=== PATIENT | female | born 1945 | race Caucasian/White ===

== ENCOUNTER 2021-10-24 04:55 | Observation (INO) ==
--- NOTE | 2021-09-08 10:39 | PAT Medication Instructions ---
Medication Instructions Date of Service September 08, 2021 Home Medications amlodipine 5 mg tablet 5 mg PO QPM cetirizine 10 mg capsule (All Day Allergy (cetirizine)) 10 mg PO QPM cholecalciferol (vitamin D3) 50 mcg (2,000 unit) capsule 25 mcg PO QPM ezetimibe 10 mg tablet 10 mg PO QPM levothyroxine 50 mcg capsule 50 mcg PO QAM losartan 100 mg tablet 100 mg PO QPM omega-3 fatty acids 1,000 mg capsule (Fish Oil Concentrate) 1,000 mg PO BID metoprolol tartrate 25 mg tablet 25 mg PO BID vitamin C 500 mg-multivitamin with minerals chewable tablet (Emergen-C) 1 tab PO QPM STOP taking 2 weeks before surgery omega-3 fatty acids 1,000 mg capsule (Fish Oil Concentrate) 1,000 mg PO BID Take morning of surgery With a small sip of water, OTHERWISE NOTHING TO EAT OR DRINK AFTER MIDNIGHT: levothyroxine 50 mcg capsule 50 mcg PO QAM metoprolol tartrate 25 mg tablet 25 mg PO BID Take evening before surgery amlodipine 5 mg tablet 5 mg PO QPM cetirizine 10 mg capsule (All Day Allergy (cetirizine)) 10 mg PO QPM cholecalciferol (vitamin D3) 50 mcg (2,000 unit) capsule 25 mcg PO QPM ezetimibe 10 mg tablet 10 mg PO QPM losartan 100 mg tablet 100 mg PO QPM metoprolol tartrate 25 mg tablet 25 mg PO BID vitamin C 500 mg-multivitamin with minerals chewable tablet (Emergen-C) 1 tab PO QPM Other Notes If you have any questions please call us at [phone] or [phone] or [phone] or [phone]
--- NOTE | 2021-09-11 10:32 | Anesthesiology Consultation ---
Date of Service September 11, 2021 Assessment & Plan (1) Encounter for pre-operative examination: Chart Review Chart Review: Acceptable Risk for Surgery (pending preop Covid testing results ) and Patient seen in Pre Admission Testing Per PAT appt on 09/11/21, patient denies any recent travel or large group activities. No known Covid positive exposures or Covid related symptoms. No known Covid infection in the past 90 days. Pt is vaccinated for surgery. Preop Covid testing scheduled 10/20/21= will await results. Educated on importance of self quarantining, social distancing and wearing mask in public for the patient one week prior to surgery and after Covid testing done Teaching & Discussion Pre-Anesthesia Teaching/Discussion Notes: Instructed NPO after midnight before surgery,except medications with 15 cc of water. Medication instructions provided according to the [facility] guidelines. History Surgery Operation Date: 10/24/21 07:00 Proposed Procedures p Right Total Hip Arthroplasty - Mello Street MD Height/Weight Height: 5 ft 5 in Weight: 90.6 kg Allergies Allergy/AdvReac Type Severity Reaction Status Date / Time adhesive tape Allergy Unknown BLISTERS Verified 09/08/21 09:00 EKG ELECTRODES Allergy Unknown Rash Uncoded 09/08/21 09:00 Medications Home Medications Medication Instructions Recorded Confirmed Last Taken amlodipine 5 mg tablet 5 mg PO QPM 06/12/21 09/08/21 Unknown cetirizine 10 mg capsule (All Day 10 mg PO QPM 06/12/21 09/08/21 Unknown Allergy (cetirizine)) cholecalciferol (vitamin D3) 50 25 mcg PO QPM 06/12/21 09/08/21 Unknown mcg (2,000 unit) capsule ezetimibe 10 mg tablet 10 mg PO QPM 06/12/21 09/08/21 Unknown levothyroxine 50 mcg capsule 50 mcg PO QAM 06/12/21 09/08/21 Unknown losartan 100 mg tablet 100 mg PO QPM 06/12/21 09/08/21 Unknown omega-3 fatty acids 1,000 mg 1,000 mg PO BID 06/12/21 09/08/21 Unknown capsule (Fish Oil Concentrate) metoprolol tartrate 25 mg tablet 25 mg PO BID 09/08/21 09/08/21 Unknown vitamin C 500 mg-multivitamin with 1 tab PO QPM 09/08/21 09/08/21 Unknown minerals chewable tablet (Emergen-C) Tumeric 500 mg PO DAILY 09/11/21 09/11/21 Unknown hydrocortisone 1 % topical cream 1 applic TOPICAL BID PRN 09/11/21 09/11/21 Unknown Past Medical History Medical History (Updated 09/11/21 @ 16:35 by Ryann Haskins PA-C) Arthritis MULTIPLE SITES Family history of reaction to anesthesia SISTER - N/V History of anesthesia reaction AGE 18 - REACTION TO SODIUM PENTATHOL , AGITATION AND HYSTERIA HTN (hypertension) Hx of radioactive iodine thyroid ablation HX OVERACTIVE THYROID...HX RADIOACTIVE IODINE TX Hyperlipidemia Hypothyroid Follows with endocrinology routinely - stable MVP (mitral valve prolapse) - No murmur noted on 09/11/21 PAT exam - No ECHO in past 8 years per patient -Mild- per patient- does not need pretreated with antibiotic prior to procedures Neck problem ARTHRITIS, LIMITED ROM Exercise / Class Metabolic Activity III < 4 Walking/Shop/Light housework (no chest pain or SOB with flat surface ambulation - uses cane for ambulation ) Past Family History Family History Sister Family history of diabetes mellitus Grandmother Family history of diabetes mellitus Uncle Family history of diabetes mellitus Past Surgical History Surgical History History of breast biopsy RX1, LX1 History of colonoscopy History of D&C X3 History of partial thyroidectomy History of tonsillectomy and adenoidectomy [place] teeth removed HX Past Anesthesia History No Hx of Anesthesia Complications (with exception to sodium pentathol - causes agitation and hysteria - no other known issues ) and No Family Hx of Anesthesia Complications (with exception to sister - PONV ) History of PONV No Hx of Motion Sickness and History of PONV (x 1 episode at age 18 years of age- no issues since ) Social History Smoking Status: Former smoker tobacco type: cigarettes Do You Dip or Chew Tobacco: No Smoking End Date: 35 YR AGO Hx Alcohol Use: Yes Alcohol type: wine alcohol intake frequency: holidays/special occasions only substance use type: does not use Review of Systems Rare palpitations- had hx of heart monitor - no arrhythmias per patient Chronic cough- x many years- stable. Hx of snoring- no hx of sleep study Has had hx of abnormal CXR- was referred to pulmonology- had CT scans routinely x 2 years- stable/had no changes. Nora was scarring. Patient denies chest pain, shortness of breath, dyspnea on exertion, reflux, wheezing. No hx of seizures, stroke, VA. No hx of blood clots or blood transfusions Physical Exam Vital Signs VITALS BP 121/73 P 62 TEMP 97.7 SP02 96% RESP 16 Constitutional no acute distress ENMT Mouth: no TMJ clicking Thyromental Distance: > or= 3.5 Finger Breadths (3.5) Mallampati Class: III Crowns to molars and side teeth [place] to right upper right tooth Neck + limited neck extension (significant ) Respiratory normal respiratory effort; no respiratory distress Auscultation: lungs clear to auscultation bilaterally; no wheezes Cardiovascular Rate/Rhythm: regular rate and regular rhythm Heart Sounds: no murmur Vessels: no carotid bruit Musculoskeletal Spine: + pain with cervical ROM Extremities: extremities normal to inspection Psychiatric Orientation: alert Lab Results Anesthesia Preop Results Results Anesthesia Widget: WBC 5.97 K/uL (4.8-10.8) 09/11/21 Hgb 14.0 g/dL (12.0-16.0) 09/11/21 Hct 42.4 % (37-47) 09/11/21 Plt 234 K/uL (130-400) 09/11/21 Na 140 mmol/L (136-145) 09/11/21 K 4.7 mmol/L (3.5-5.1) 09/11/21 Cl 106 mmol/L (98-107) 09/11/21 CO2 30 mmol/L (21-32) 09/11/21 BUN 23 mg/dl (6-23) 09/11/21 Creat 0.69 mg/dl (0.6-1.2) 09/11/21 Glucose Level 88 mg/dl (70-99(Fasting)) 09/11/21 PT 10.7 Seconds (9.0-12.0) 09/11/21 PTT 28.7 Seconds (21.0-31.0) 09/11/21 INR 1.0 (0.9-1.1) 09/11/21 Blood Type O Positive 09/11/21 Antibody Screen NEGATIVE 09/11/21 Testing Electrocardiogram Date: 09/11/21 Findings: + SB @ (58bpm) Poor data quality Nonspecific ST abnormality Chest X-Ray Date: 09/11/21 Findings: + NAD Other Testing Event monitor 09/26/20= Minimum HR 44 bpm, max HR 102 bpm, average HR 69 bpm. Predominant underlying rhythm was sinus rhythm. Isolated SVE's were rare (<1.0%), SVE couplets were rare (<1.0%), and no SVE triplets were present. Isolated VE's were rare (<1.2%), and no VE couplets or VE triplets were present. Impression: Sinus rhythm, average heart rate 69 bpm with rare atrial ventricular ectopic and no correlation with patient's symptoms.
--- NOTE | 2021-10-20 15:27 | History and Physical Report ---
DATE OF ADMISSION: 10/24/2021 CHIEF COMPLAINT: Persistent right leg pain and discomfort. HISTORY OF PRESENT ILLNESS: The patient is a 75-year-old female who presents for followup and surgic al treatment of her right leg. She has a known history of bilateral hip and knee arthritis that we stanislav palmere been following in the past. This is going on for the past 10-12 years. The right side seems to be getting significantly worse than the left. She has been treated by Dr. Holland Juarez over at [facility] in [place], which has really not helped too much. She had an intra-articular hip joint injection, which hel ped her for a short period of time. She also had a knee injection, which helped some. She now prese nts with progressive severe pain in her right hip. The hip has gotten significantly worse. It has p rogressed. It is limiting her activities. Her walking tolerance is very limited. She would like to have her hip fixed. PAST MEDICAL HISTORY: 1. Mitral valve prolapse. 2. Anxiety. 3. Elevated cholesterol. 4. Hypertension. 5. Asthma. 6. Eczema. 7. Mild obesity with a BMI of 33. PAST SURGICAL HISTORY: Includes, 1. Thyroid removal. 2. D and C. 3. Breast biopsy. 4. Tonsillectomy. 5. Oral surgery. 6. Left knee arthroscopy. ALLERGIES: ADHESIVE TAPE. CURRENT MEDICATIONS: Include, 1. Diclofenac topical cream. 2. Cetirizine. 3. Levothyroxine. 4. Metoprolol. 5. Amlodipine. 6. Losartan. 7. Vitamin D3. 8. Fish oil. 9. Ezetimibe. 10. Tylenol. SOCIAL HISTORY: A 75-year-old female. She is . Lives by herself. Rare alcohol intake. Conte s not smoke. FAMILY HISTORY: Significant for heart disease, diabetes, skin cancer. REVIEW OF SYSTEMS: Significant for prediabetes. No chest pain or shortness of breath. No history o f DVT or PE. No bleeding problems. She does have a history of some chronic back pain. PHYSICAL EXAMINATION: GENERAL: Shows a pleasant, elderly female. Looks to be in reasonably good health. HEENT: Benign. NECK: Supple. No lymphadenopathy. LUNGS: Clear to auscultation. HEART: Has a regular rate and rhythm. ABDOMEN: Soft, nontender, nondistended. EXTREMITIES: Grossly neurovascularly intact except as follows: Examination of the right hip reveale d patient walks with an antalgic gait. Leg lengths appear pretty equal. She has got very limited hi p motion with internal rotation and neutral, which re-creates her pain. Negative straight leg raise. She is neurologically intact. Examination of the right knee reveals slight varus alignment. She has got bony hypertrophy medially. Small knee effusion. Range of motion is 5-125. X-RAYS: X-rays of the right hip are reviewed. It shows advanced right hip DJD. She has complete lo ss of her superior joint space. She has got cystic changes on both sides of the joint. She has got a similar but less severe disease on the left side. Compared to previous x-rays, this right hip arthritis has progressed significantly. X-rays of both knees reveal bilateral knee DJD, the right side worse than the left. ASSESSMENT: A 75-year-old female with advanced bilateral hip and bilateral knee degenerative joint d isease, right side a bit worse than the left. I do think her right hip has progressed significantly and giving her the biggest problems right now. PLAN: We talked about treatment. We are going to proceed with right total hip replacement. The ris ks and benefits of this procedure were explained to the patient and include but not limited to DVT, P E, , infection, neurological injury, vascular injury, bleeding problem, pain, limited range of m otion, stiffness, failure to relieve her symptoms, incomplete relief of symptoms, need for further hughes rgery in the future, etc. The patient understands and desires to proceed. Informed consent was obta ined. She does live by herself, so she will likely need to go to [facility] for rehab postoperatively. She does take her metoprolol on the morning of surgery. Job ID: [id number]
[2021-10-24] MEDS ORDERED: ACETAMINOPHEN 500 MG TAB PO SCH (06:00)
[2021-10-24] MEDS ORDERED: ceFAZolin 2000MG 2,000 MG/15 ML SYR IV SCH (06:00)
[2021-10-24] MEDS ORDERED: METOCLOPRAMIDE HCL 10 MG TABLET PO SCH (06:00)
[2021-10-24] MEDS ORDERED: TRANEXAMIC ACID 1,000 MG **IV Pre-op IV SCH (06:00)
[2021-10-24] MEDS ORDERED: FAMOTIDINE 20 MG TAB PO SCH (06:00)
[2021-10-24] MEDS ORDERED: GABAPENTIN 600 MG DOSE PO SCH (06:00)
[2021-10-24] MEDS ORDERED: LR 500ML BOLUS, THEN 15ML/HR IV SCH (06:00)
[2021-10-24] MEDS ORDERED: LR 60ML/HR IV SCH (06:00)
[2021-10-24] MEDS ORDERED: BUPIVACAINE 0.5 % 5 MG/1 ML MPF 30ML VIAL ONE ×2 (06:25→06:35)
[2021-10-24] MEDS ORDERED: EPINEPHrine INJ 1 MG/ML AMP ONE (06:35)
[2021-10-24] MEDS ORDERED: MIDAZOLAM HCL 1 MG/ML 2ML VIAL ONE (06:37)
[2021-10-24] MEDS ORDERED: fentaNYL citrate 100 MCG/2 ML VIAL ONE (06:38)
[2021-10-24] MEDS ORDERED: MoRPHine SULFATE PF 1 MG/ML 10 ML AMP/VIAL ONE (06:42)
[2021-10-24] MEDS ORDERED: PROPOFOL IV EMULSION 10 MG/ML 20 ML VIAL IV ONE (06:51)
[2021-10-24] MEDS ORDERED: LIDOCAINE 2% 2 ML VIAL/AMP(20MG/ML) INFIL ONE (06:51)
[2021-10-24] MEDS ORDERED: ONDANSETRON INJ 2 MG/ML 2 ML VIAL ONE (06:51)
--- NOTE | 2021-10-24 06:54 | History & Physical Bridge Note ---
Date of Service October 24, 2021 History & Physical Bridge Note I have examined the patient, reviewed the History & Physical and in the interval since the performance of the History & Physical I have noted the following changes of clinical significance: no changes noted
[2021-10-24] MEDS ORDERED: ePHEDrine sulfate 50 MG/ML AMP ONE (07:25)
[2021-10-24] MEDS ORDERED: PROMETHAZINE HCL 12.5 MG in SODIUM CHLORIDE 0.9% 50 ML IV PRN (07:35)
[2021-10-24] MEDS ORDERED: HYDROmorphone INJ 2 MG/ML SYR/VIAL IV PRN (07:35)
[2021-10-24] MEDS ORDERED: ONDANSETRON INJ 2 MG/ML 2 ML VIAL IV PRN ×2 (07:35→09:44)
[2021-10-24] MEDS ORDERED: fentaNYL citrate 100 MCG/2 ML VIAL IV PRN (07:35)
[2021-10-24] MEDS ORDERED: ePHEDrine sulfate 50 MG/ML AMP IV PRN (07:35)
[2021-10-24] MEDS ORDERED: ATROPINE SULFATE 0.1 MG/ML 10ML SYR IV PRN (07:35)
--- NOTE | 2021-10-24 08:37 | Operative Report ---
PG Post Operative Report Pre & Post Diagnosis Operation Date: 10/24/21 07:00 Pre-Op Diagnosis: Right Hip Advanced Degenerative Joint Disease Post-Op Diagnosis: Right Hip Advanced Degenerative Joint Disease I identified the patient and participated in the time-out.: Yes Procedure Operation Date: 10/24/21 07:00 Actual Procedures p Right Total Hip Arthroplasty--Uncemented(Right) - Mello Street MD Surgeon Mello Street MD Lead Android Developer Tim Coleman PA-C Estimated Blood Loss 200 Findings Consistent with Post-Op Diagnosis Operative findings real advanced right hip DJD. She had grade 4 [id number] disease of the femoral head and acetabulum. Fairly significant osteophytes around the acetabulum. Fairly concentric wear pattern. Good bone stock. Fluids 1300 cc Specimens Right femoral head sent for pathology. Drains None Anesthesia Type Spinal MAC Complications none Disposition Accompanied Patient To Recovery: Yes Indications Patient is a 75-year-old female has had a long history of bilateral knee and hip pain over the years. Her hip pain is consequently worse over the past year to the point where she is having trouble getting around. X-rays show progressive hip arthritis. She elected proceed with total hip arthroplasty. Description of Procedure Operative implants consist of: 1 Biomet G7 size 52 mm acetabular shell. 2. 6.5 cancellous acetabular screws 1 of 35 mm length 120 mm length. 3. Wall hole underground mine machinery mechanic. 4. Highly cross-linked polyethylene liner with a 52 mm outer diameter, 36 mm inner diameter and a rhodes placed inferior and posterior. 5. DePuy Corail size 11 short neck femoral stem with 125 degree angle. 6. +5/36 mm ceramic articular ball. The patient was taken to the operating, identified, and placed on the operating table supine position protectors were properly padded. IV antibiotics tried by anesthesia team. A spinal anesthetic had been implemented holding area. Fox catheter was placed in sterile fashion. The patient then placed in the left lateral cubitus position. An axillary roll was placed. A Stulberg hip positioner was used for positioning. The right hip and leg were then prepped and draped in usual sterile fashion. A posterolateral approach right hip was then performed to a curvilinear incision centered over the greater trochanter. Sharp dissection Through subcutaneous this down to the IT band gluteal fascia with the IT band gluteal fascia/longitudinally in line with skin incision. The underlying greater bursa was excised. The piriformis and external rotators were tagged and taken off the posterior aspect hip joint capsule. Great care was taken To procedure protect the sciatic nerve at all times. Posterior capsulotomy was then performed leaving a large flap for later repair. Hip was internally rotated and dislocated. Femoral neck osteotomy cut was made with a Final Cut about 12 mm above the lesser trochanter. Femoral head was removed and sent for pathology. The femur was retracted anteriorly. Attention drawn the acetabulum. The acetabular labrum was excised. The pulmonary fat was excised. Sequential reaming the acetabular was then performed begin with size 43 and progressing up to a 51. I did reamed a little bit with a 52 reamer and then placed a 52mm G7 acetabular shell in about 40 degrees lateral opening and 20 degrees of anteversion. Was fixed with two 6.5 cancellous acetabular screws. Some anterior and posterior osteophytes were removed. Trial liner was placed. Attention drawn the femur. The proximal femur was entered with a cookie cutter followed by canal finder. I then broached begin the size 8 and progressed up to 11 please got excellent fit 11. I then trialed the hip and with the standard neck the soft tissue tension just seemed very tight. We did elect to use the short neck. With a +5 articular ball the hip was fully stable in full extension and external rotation and flexion to 9 degrees internal rotation over [address] We elect to place these implants. All trial implants were removed. An apex hole underground mine machinery mechanic was placed. Highly cross-linked polyethylene liner was placed. A DePuy size 11 short neck KLA stem was then impacted into position. A +5/36 mm ceramic articular ball was placed. Hip was located once again found to be stable. Attention drawn toward closing. Wound was irrigated scopes amounts of pulsatile lavage solution. I did inject locally with 60 cc of half percent Marcaine with epinephrine. The posterior capsule and external rotators then repaired through drill holes in the posterior trochanter with #2 Tycron suture. The IT band gluteal fascia then closed in 1 PDS suture running fashion for subcutaneous tissue then closed with 2 layers with a deep layer #2 Vicryl suture and subcutaneous tissues with 2-0 Dexon suture in a buried interrupted fashion. Skin was closed skin yevgeniy. Leg was then cleaned and dried a sterile dressing was Xeroform, 4 x 4's, ABD pad: Medipore tape were applied. Patient then transferred to the cover room in stable condition. Patient tolerated procedure well and there were no complications. Tim Coleman, my physician freezer assistant, was present for the entire procedure. His assistance was essential and required for appropriate patient positioning, prepping and draping, surgical exposure, performing the technical details of the operation, placement the implants, closure of the wound, and placement of the sterile bandage. I attest to the content of the Intraoperative Record and any orders documented therein. Any exceptions are noted below.
[2021-10-24] MEDS ORDERED: NALOXONE HCL 0.4 MG/1 ML VIAL/CARP IV PRN (09:44)
[2021-10-24] MEDS ORDERED: HYDROmorphone INJ 0.5 MG/0.5 ML SYR IV PRN (09:44)
[2021-10-24] MEDS ORDERED: TUMERIC 500 MG PO SCH (09:44)
[2021-10-24] MEDS ORDERED: METOCLOPRAMIDE HCL INJ 5 MG/ML 2 ML VIAL IV PRN (09:44)
[2021-10-24] MEDS ORDERED: ALUMINUM/MAGNESIUM SUSP 30 ML UDC PO PRN (09:44)
[2021-10-24] MEDS ORDERED: MAGNESIUM HYDROXIDE SUSP 30 ML UDC PO PRN (09:44)
[2021-10-24] MEDS ORDERED: bisacodyL 10 MG SUPP PR PRN (09:44)
[2021-10-24] MEDS: BUPIVACAINE LIPOSOME/PF 266 MG, BUPIVACAINE/EPINEPHRINE 50 ML, SODIUM CHLORIDE 0.9% 30 ... INFIL SCH ×2 (09:47→10:15)
--- NOTE | 2021-10-24 09:47 | Anesthesiology Progress Note ---
Date of Service October 24, 2021 Anesthesia Post Procedure Vital Signs Vital Signs: Temp Pulse Pulse Resp BP Pulse Ox 10/24/21 09:20 68 16 115/56 L 97 10/24/21 09:10 36.2 C L 66 18 113/58 L 98 10/24/21 09:00 72 19 117/60 100 10/24/21 08:50 69 15 119/59 L 99 10/24/21 08:40 68 19 121/57 L 96 10/24/21 08:30 75 20 123/60 100 10/24/21 08:22 36.4 C L 80 13 120/63 100 10/24/21 05:37 36.9 C 68 20 127/64 94 Pain Intensity Right Hip: Pain Intensity: 7 Transfer of Care Handoff Completed per policy Notes Mental Status: alert / awake / arousable and participated in evaluation Patient Amnestic to Procedure: Yes Nausea / Vomiting: adequately controlled Pain: adequately controlled Airway Patency, RR, SpO2: stable & adequate BP & HR: stable & adequate Hydration State: stable & adequate Anesthetic Complications: no major complications apparent
[2021-10-24] MEDS: SODIUM CHLORIDE 0.9% 1000ML 1,000 ML IV SCH ×2 (10:37→20:18)
[2021-10-24] MEDS ORDERED: HYDROCORTISONE 1% CRM 30 GM TUBE EXT PRN (10:51)
[2021-10-24] MEDS: MULTIVITAMIN TAB PO SCH (10:58)
[2021-10-24] MEDS: KETOROLAC TROMETHAMINE 15 MG/ML VIAL IV SCH ×3 (10:58→22:37)
[2021-10-24] MEDS: DOCUSATE SODIUM 100 MG CAP PO SCH ×2 (10:58→20:13)
[2021-10-24] MEDS: METOPROLOL TARTRATE 25 MG TAB PO SCH ×3 (10:58→20:12)
[2021-10-24] MEDS: ASPIRIN 81 MG ECTAB PO SCH ×2 (10:58→20:14)
--- NOTE | 2021-10-24 11:16 | XRay Report ---
XR hip 1V RT w pelvis CLINICAL HISTORY: IN PACU - A/P PELVIS and LATERAL HIP . Status post total hip replacement. COMPARISON STUDY: No previous studies for comparison. TECHNIQUE: 2 right hip views FINDINGS: The patient is status post total hip replacement. The prosthetic components are in anatomic alignment with no acute abnormality seen. Skin yevgeniy are seen from the recent procedure. IMPRESSION: 1. Status post total hip replacement ACT 112: Negative or not required by law. Electronically signed by: Jean Paul Stern M.D. 10/24/2021 11:15 AM
[2021-10-24] MEDS: NYSTATIN POWDER 15GM BTL EXT SCH ×2 (12:07→20:15)
[2021-10-24] MEDS: ceFAZolin 2000MG 2,000 MG/15 ML SYR IV SCH ×2 (14:28→22:36)
[2021-10-24] MEDS: ACETAMINOPHEN 500 MG TAB PO SCH ×2 (14:29→22:37)
[2021-10-24] MEDS ORDERED: TRANEXAMIC ACID / 0.7% NACL 1,000 MG/100 ML BAG IV SCH (14:30)
[2021-10-24] MEDS ORDERED: ASCORBIC ACID 500 MG TAB PO SCH ×2 (17:00→21:00)
[2021-10-24] MEDS: traMADol HCL 50 MG TABLET PO PRN (17:42)
[2021-10-24] MEDS: OMEGA-3 (PURIFIED FISH OIL) 1 GM CAP PO SCH (20:13)
[2021-10-24] MEDS ORDERED: CHOLECALCIFEROL 1,000 UNITS 25 MCG TAB PO SCH (21:00)
[2021-10-24] MEDS ORDERED: CETIRIZINE HCL 10 MG TABLET PO SCH (21:00)
[2021-10-24] MEDS ORDERED: EZETIMIBE 10 MG TABLET PO SCH (21:00)
[2021-10-24] MEDS ORDERED: SENNA 8.6 MG TAB PO SCH (21:00)
[2021-10-24] MEDS ORDERED: LOSARTAN POTASSIUM 50 MG TAB PO SCH (21:00)
[2021-10-24] MEDS ORDERED: amLODIPine BESYLATE 5 MG TAB PO SCH (21:00)
[2021-10-25] MEDS: KETOROLAC TROMETHAMINE 15 MG/ML VIAL IV SCH ×3 (04:54→14:31)
[2021-10-25] MEDS: SODIUM CHLORIDE 0.9% 1000ML 1,000 ML IV SCH (06:25)
[2021-10-25] MEDS: ACETAMINOPHEN 500 MG TAB PO SCH ×2 (06:26→14:30)
[2021-10-25] MEDS ORDERED: LEVOTHYROXINE SODIUM 50 MCG TABLET PO SCH (06:30)
[2021-10-25 07:22] LABS: Basophils # (auto) 0.01 K/uL (0-0.2); Basophils % (auto) 0.1 %; Eosinophils # (auto) 0.06 K/uL (0-0.5); Eosinophils % (auto) 0.9 %; Hemoglobin 12.3 g/dL (12.0-16.0); Immature Granulocytes # (auto) 0.01 K/uL (0.00-0.02); Immature Granulocytes % (auto) 0.1 %; Lymphocytes # (auto) 0.96 K/uL (1.2-3.4); Lymphocytes % (auto) 14.2 %; Mean Corpuscular Hemoglobin 28.6 pg (25-34); Mean Corpuscular Hgb Conc 31.5 g/dL (32-36); Mean Corpuscular Volume 90.7 fL (80-100); Mean Platelet Volume 10.3 fL (7.4-10.4); Monocytes % (auto) 11.8 %; Neutrophils # (auto) 4.94 K/uL (1.4-6.5); Neutrophils % (auto) 72.9 %; Platelet Count 171 K/uL (130-400); RDW Coefficient of Variation 13.9 % (11.5-14.5); RDW Standard Deviation 45.8 fL (36.4-46.3); White Blood Count 6.78 K/uL (4.8-10.8)
[2021-10-25 07:29] LABS: BUN Creatinine Ratio 16.9 (10-20); Calcium 8.6 mg/dl (8.5-10.1); Creatinine Clr Calc Pharmacy 72.5 ml/min; Est GFR (African American) 88.8 ml/min; Est GFR (Non-African American) 76.6 ml/min; Potassium 3.4 mmol/L (3.5-5.1)
[2021-10-25 07:58] VITALS: BP 134/72; PULSE 66; TEMP 98.4; O2SAT 96
[2021-10-25] MEDS ORDERED: dexAMETHasone 10 MG in SYRINGE 0 ML IV SCH (08:00)
[2021-10-25] MEDS: OMEGA-3 (PURIFIED FISH OIL) 1 GM CAP PO SCH (08:57)
[2021-10-25] MEDS: MULTIVITAMIN TAB PO SCH (08:57)
[2021-10-25] MEDS: METOPROLOL TARTRATE 25 MG TAB PO SCH (08:57)
[2021-10-25] MEDS: DOCUSATE SODIUM 100 MG CAP PO SCH (08:57)
[2021-10-25] MEDS: ASPIRIN 81 MG ECTAB PO SCH (08:58)
[2021-10-25] MEDS: NYSTATIN POWDER 15GM BTL EXT SCH (08:58)
[2021-10-25] MEDS: traMADol HCL 50 MG TABLET PO PRN (10:10)
--- NOTE | 2021-10-25 13:07 | Progress Notes ---
DATE OF SERVICE: 10/25/2021. SUBJECTIVE: A 75-year-old white female postoperative day 1 from right hip replacement. She is doing pretty well. Therapy has gone pretty well. Pain is controlled. No chest pain or shortness of gavin th. Not feeling dizzy or lightheaded. OBJECTIVE: VITAL SIGNS: Temperature 36.9. Vital signs are stable. GENERAL: Shows a pleasant, elderly female. Sitting up in her bedside chair, looks pretty comfortabl e. LUNGS: Clear to auscultation. HEART: Regular rate and rhythm. ABDOMEN: Soft, nontender, nondistended. EXTREMITIES: Grossly neurovascularly intact except as follows. Examination of the right hip and leg reveals leg lengths are equal. Thigh is soft and supple. Dress ing is clean, dry and intact. She can dorsiflex and plantarflex her foot appropriately. LABORATORY DATA: Hemoglobin 12.3. Hematocrit 39.0. Electrolytes are stable. ASSESSMENT: A 75-year-old white female postoperative day 1 from a right hip replacement, doing prett y well. Pain is controlled. Hip is located. She is neurologically intact. PLAN: 1. DVT prophylaxis includes thigh-high TEDs, SCDs, and aspirin twice a day. 2. PT, OT, weightbear as tolerated. Right total hip protocol. 3. Pain control, doing okay with current pain regimen. 4. Disposition: She is hoping to be discharged to [facility] once medically st able and when bed available. Job ID: [id number]
== END 2021-10-25 15:20 ==
LOC: 3E 04:55 → ASU 04:55